=== PATIENT | male | born 1955 ===

== ENCOUNTER 2018-07-13 15:35 | Inpatient (IN) | payer SELFPAY ==
--- NOTE | 2018-07-13 16:36 | ED PDOC ---
HPI: Neurologic - History of Present Illness Additional Complaint(s): This is 62 y/o male with PMH of NIDDM-II, HTN and TIA comes to the ER c/o right arm weakness 10 hours ago. Patient reports he was writing and started feeling weak all the sudden up to the point he couldn't write or move his arm. Right arm weakness/numbness lasted for few hours and currently completely resolved. Patient denies any slurred speech, vision problem, headache, dizziness, confusion, chest pain, SOB, or LOC. Patient reports he also has few days hx of mild lower extremities weakness which gets prominent after walking or standing for long time. Patient has hx of TIA 5 years ago. PMH: NIDDM-II, HTN and TIA PSH: Denies Allg: NKDA FH: + DM SH: Denies alcohol, smining or drug use ROS: As per HPI <Linnette Theodore - Last Filed: 07/13/18 18:51> <Omaira Daugherty - Last Filed: 07/15/18 03:57> - General Time Seen by Provider: 07/13/18 15:59 Chief Complaint (Nursing): Weakness/Neurological Deficit - History of Present Illness Allergies/Adverse Reactions: Allergies No Known Allergies Allergy (Verified 07/13/18 15:52) Home Medications: Ambulatory Orders Glimepiride [Amaryl] 4 mg PO BID 01/18/15 Losartan [Cozaar] 50 mg PO DAILY 01/18/15 Alogliptin Madhav/Metformin HCl [Kazano 12.5-1,000 mg Tablet] 1 tab PO BID 07/13/18 Fenofibrate,Micronized [Fenofibrate] 134 mg PO DAILY 07/13/18 Pioglitazone [Actos] 15 mg PO DAILY 07/13/18 Past Medical History Vital Signs: Last Vital Signs Temp 98.1 F 07/13/18 15:49 Pulse 67 07/13/18 15:49 Resp 17 07/13/18 15:49 BP 166/85 H 07/13/18 15:49 Pulse Ox 99 07/13/18 15:49 - Medical History PMH: Diabetes, HTN - Family History Family History: States: Diabetes <Linnette Theodore - Last Filed: 07/13/18 18:51> Reviewed: Historical Data, Nursing Documentation, Vital Signs Vital Signs: Last Vital Signs Temp 98.1 F 07/15/18 00:41 Pulse 71 07/15/18 00:41 Resp 16 07/15/18 00:41 BP 135/73 07/15/18 00:41 Pulse Ox 98 07/15/18 00:41 - Surgical History Surgical History: No Surg Hx <Omaira Daugherty - Last Filed: 07/15/18 03:57> - Home Medications Home Medications: Ambulatory Orders Medication Instructions Recorded Glimepiride [Amaryl] 4 mg PO BID 01/18/15 Losartan [Cozaar] 50 mg PO DAILY 01/18/15 Alogliptin Madhav/Metformin HCl 1 tab PO BID 07/13/18 [Kazano 12.5-1,000 mg Tablet] Fenofibrate,Micronized 134 mg PO DAILY 07/13/18 [Fenofibrate] Pioglitazone [Actos] 15 mg PO DAILY 07/13/18 - Allergies Allergies/Adverse Reactions: Allergies Allergy/AdvReac Type Severity Reaction Status Date / Time No Known Allergies Allergy Verified 07/13/18 15:52 Review of Systems Constitutional: Negative for: Fever, Chills, Sweats Eyes: Negative for: Pain, Vision Change, Conjunctivae Inflammation ENT: Negative for: Ear Pain, Ear Discharge, Nose Pain, Nose Discharge Cardiovascular: Negative for: Chest Pain, Palpitations, Orthopnea, Paroxysmal Noc. Dyspnea Respiratory: Negative for: Cough, Shortness of Breath, Hemoptysis Gastrointestinal: Negative for: Nausea, Vomiting, Diarrhea Genitourinary Male: Negative for: Dysuria, Frequency, Incontinence Musculoskeletal: Negative for: Neck Pain Skin: Negative for: Rash Neurological: Positive for: Weakness, Numbness. Negative for: Incoordination, Change in Speech, Confusion, Seizures, Altered Mental Status, Headache, Dizziness Psych: Negative for: Anxiety <Linnette Theodore - Last Filed: 07/13/18 18:51> ROS Statement: Except As Marked, All Systems Reviewed And Found Negative <Omaira Daugherty - Last Filed: 07/15/18 03:57> Physical Exam - Physical Exam Appears: Positive for: No Acute Distress Head Exam: Positive for: ATRAUMATIC, NORMAL INSPECTION, NORMOCEPHALIC Skin: Positive for: Normal Color, Warm, Dry Eye Exam: Positive for: Normal appearance, EOMI, PERRL. Negative for: Nystagmus, Periorbital swelling, Periorbital tenderness, Conjunctival injection ENT: Positive for: Normal ENT Inspection Neck: Positive for: Normal Cardiovascular/Chest: Positive for: Regular Rate, Rhythm, Chest Non Tender. Negative for: Edema, JVD, Murmur, Irregularly Irregular Respiratory: Positive for: Normal Breath Sounds. Negative for: Decreased Breath Sounds, Accessory Muscle Use, Crackles, Wheezing Gastrointestinal/Abdominal: Positive for: Normal Exam, Bowel Sounds (+), Soft. Negative for: Tenderness Back: Positive for: Normal Inspection. Negative for: L CVA Tenderness, R CVA Te nderness Extremity: Positive for: Normal ROM. Negative for: Tenderness, Pedal Edema, Calf Tenderness DTR - Knee (R): 2+ DTR - Knee (L): 2+ Neurological/Psych: Positive for: Awake, Alert, Normal Tone, Oriented, Gait (Normal), electrical engineering manager II-XII, Other (NIHSS score is 0 ). Negative for: Lethargic, Motor/Sensory Deficits, Facial Droop <Linnette Theodore - Last Filed: 07/13/18 18:51> - Reviewed Nursing Documentation Reviewed: Yes Vital Signs Reviewed: Yes <Omaira Daugherty - Last Filed: 07/15/18 03:57> - Laboratory Results Result Diagrams: 07/13/18 16:30 07/13/18 16:30 - ECG O2 Sat by Pulse Oximetry: 99 - Progress ED Course And Treament: A/P: 62 y/o male with PMH of NIDDM-II, HTN and TIA comes to the ER c/o right arm weakness 10 hours ago and b/l LEs weakness for few days. Asymptomatic currently. - NIHSS 0 - Stroke/TIA work up - Neurology consult Case discussed with Dr. Daugherty Neurology: recommendation MRI Discussed with Dr. Daugherty: will get MRI after CT CBC, CMP, lipids and trop reviewed: WNL EKG reviewed CXR: No acute disease CT head: No acute changes, + old infarct Aspirin given MRI ordered Patient was explained and informed about his diagnosis and findings Patient agrees with Admission <Linnette Theodore - Last Filed: 07/13/18 18:51> - Laboratory Results Result Diagrams: 07/13/18 16:30 07/14/18 06:01 Lab Results: PT 10.5 Seconds (9.8-13.1) 07/13/18 16:30 INR 0.9 07/13/18 16:30 APTT 32.2 Seconds (25.6-37.1) 07/13/18 16:30 Troponin I < 0.0120 ng/mL (0.00-0.120) 07/13/18 16:30 Total Bilirubin 0.4 mg/dl (0.2-1.3) 07/13/18 16:30 AST 25 U/L (17-59) 07/13/18 16:30 ALT 32 U/L (21-72) 07/13/18 16:30 Alkaline Phosphatase 72 U/L (38-126) 07/13/18 16:30 Total Protein 7.3 G/DL (6.3-8.2) 07/13/18 16:30 Albumin 4.4 g/dL (3.5-5.0) 07/13/18 16:30 Globulin 2.8 gm/dL (2.2-3.9) 07/13/18 16:30 Albumin/Globulin Ratio 1.6 (1.0-2.1) 07/13/18 16:30 <Omaira Daugherty - Last Filed: 07/15/18 03:57> Disposition - Patient ED Disposition Is Patient to be Admitted: Yes Discussed With : Karina Lakhani Doctor Will See Patient In The: ED - Disposition Disposition: Transfer of Care Disposition Time: 18:50 - Pt Status Changed To: Hospital Disposition Of: Observation <Linnetet Theodore - Last Filed: 07/13/18 18:51> Counseled Patient/Family Regarding: Studies Performed, Diagnosis - POA Present On Arrival: None <Omaira Daugherty - Last Filed: 07/15/18 03:57> - Clinical Impression Clinical Impression: Weakness due to cerebrovascular accident - Disposition Condition: FAIR
[2018-07-13 16:49] LABS: BASO % 0.4 % (0.0-2.0); EOS % 0.6 % (0.0-4.0); HEMOGLOBIN 13.6 g/dL (12.0-18.0); LYMPH # 1.2 K/uL (1.0-4.3); LYMPH % 19.5 % (20.0-40.0); MEAN CELL VOLUME 93.8 fl (80.0-94.0); MEAN CORPUSCULAR HEMOGLOBIN 31.3 pg (27.0-31.0); MEAN CORPUSCULAR HGB CONC 33.3 g/dL (33.0-37.0); MEAN PLATELET VOLUME 8.9 fl (7.2-11.7); MONO # 0.5 K/uL (0.0-0.8); MONO % 8.2 % (0.0-10.0); NEUT # 4.3 K/uL (1.8-7.0); NEUT % 71.3 % (50.0-75.0); RBC 4.34 Mil/uL (4.40-5.90); RED CELL DISTRIBUTION WIDTH 12.3 % (11.5-14.5)
[2018-07-13 16:56] LABS: INR 0.9; PROTHROMBIN TIME 10.5 Seconds (9.8-13.1)
[2018-07-13 16:59] LABS: PARTIAL THROMBOPLASTIN TIME 32.2 Seconds (25.6-37.1)
[2018-07-13 17:07] LABS: ALB/GLOB RATIO 1.6 (1.0-2.1); ALBUMIN 4.4 g/dL (3.5-5.0); ALT/SGPT 32 U/L (21-72); AST/SGOT 25 U/L (17-59); BLOOD UREA NITROGEN 21 mg/dl (9-20); GFR NON-AFRICAN AMERICAN 56; HDL CHOLESTEROL 45 MG/DL (30-70)
--- NOTE | 2018-07-13 17:16 | CT ---
Date of service: 07/13/2018 PROCEDURE: CT HEAD WITHOUT CONTRAST. HISTORY: code stroke COMPARISON: None available. TECHNIQUE: Axial computed tomography images were obtained through the head/brain without intravenous contrast. Radiation dose: Total exam DLP = 1089.51 mGy-cm. This CT exam was performed using one or more of the following dose reduction techniques: Automated exposure control, adjustment of the mA and/or kV according to patient size, and/or use of iterative reconstruction technique. FINDINGS: HEMORRHAGE: No intracranial hemorrhage. BRAIN: No mass effect or edema. Mild diffuse atrophy. No evidence of chronic white matter ischemic change. No evidence of acute infarct. Old left basal ganglia lacunar infarct. Old right posterior parietal territorial infarct. Remote small right high frontal white matter infarct. VENTRICLES: Minimal ventricular dilatation proportionate to the degree of surrounding atrophy. Mild ex vacuo dilatation of the atrium of the right lateral ventricle secondary to old right posterior parietal infarct. No midline shift. CALVARIUM: Unremarkable. PARANASAL SINUSES: Unremarkable as visualized. No significant inflammatory changes. MASTOID AIR CELLS: Unremarkable as visualized. No inflammatory changes. OTHER FINDINGS: None. IMPRESSION: No evidence of acute infarct. Old right posterior parietal infarct. Old left basal ganglia lacunar infarct. Findings were discussed by telephone with Dr. Theodore at 5:07 p.m. on 07/13/2018.
[2018-07-13 17:19] LABS: LDL CHOLESTEROL 74 mg/dL (0-129)
[2018-07-13] MEDS: Sodium Chloride 0.9% 1,000 ML IV SCH (17:39)
--- NOTE | 2018-07-13 17:51 | RAD ---
Date of service: 07/13/2018 HISTORY: Code Stroke COMPARISON: 01/18/2015 FINDINGS: LUNGS: No active pulmonary disease. PLEURA: No significant pleural effusion identified, no pneumothorax apparent. CARDIOVASCULAR: No aortic atherosclerotic calcification present. Normal cardiac size. No pulmonary vascular congestion. OSSEOUS STRUCTURES: No significant abnormalities. VISUALIZED UPPER ABDOMEN: Normal. OTHER FINDINGS: None. IMPRESSION: No active disease.
--- NOTE | 2018-07-13 19:47 | CP.PCM.HP ---
<Jose Reagan - Last Filed: 07/13/18 23:35> History of Present Illness - History of Present Illness History of Present Illness: 62 y/o M with a PMHx of DM2, HTN and CVA presented to ED complaining of R arm weakness that was noticed this morning. 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 Pt also reports that b/l legs have felt heavier for the last 2 weeks mostly at the end of the day, prolonged walking or standing. --Pt denies recent trauma, visual disturbances, headache, dizziness, hearing deficit, confusion, chest pain, palpitations, SOB, nausea, abdominal pain, nausea, vomiting, paresthesia, or rash. No recent travel. --As per pt, he has Hx of stroke 5 years ago which manifested as an episode of confusion that last a few hours. PMD: Dr Adams. NKDA -PMHx: NIDDM-II, HTN and TIA -PSHx: Denies -FHx: Father with sudden heart attack at age 51, Mother due to DM2 complications. -SHs: Denies alcohol, tobacco or rec drug use ED Course: --Vital signs WNL except for BP 166/85-high. --CBC and CMP were unremarkable. --Head CT: No evidence of acute infarct. Old right posterior parietal infarct. Old left basal ganglia lacunar infarct. --Aspirin 325mg PO administered. --IV NS at 100mL/hr initiated. Present on Admission - Present on Admission Any Indicators Present on Admission: No Review of Systems - Constitutional Constitutional: absent: Anorexia, Chills, Fever - EENT Nose/Mouth/Throat: absent: Nasal Congestion, Nasal Discharge, Nasal Obstruction, Throat Swelling, Tongue Swelling, Facial Pain, Neck Pain, Neck Mass - Cardiovascular Cardiovascular: absent: Chest Pain, Claudication, Palpitations - Respiratory Respiratory: absent: Cough, Dyspnea, Hemoptysis, Wheezing - Gastrointestinal Gastrointestinal: absent: Abdominal Pain, Constipation, Nausea, Vomiting - Genitourinary Genitourinary: absent: Dysuria, Flank Pain, Hematuria, Urinary Frequency - Musculoskeletal Musculoskeletal: absent: Abnormal Gait, Back Pain, Neck Pain - Neurological Neurological: absent: Abnormal Hearing, Abnormal Speech, Behavioral Changes, Con vulsions, Dizziness, Numbness, Tingling, Tremor Past Patient History - Past Social History Smoking Status: Never Smoked - CARDIAC Hx Hypertension: Yes - ENDOCRINE/METABOLIC Hx Diabetes Mellitus Type 2: Yes - PSYCHIATRIC Hx Substance Use: No - SURGICAL HISTORY Hx Surgeries: No Meds Allergies/Adverse Reactions: Allergies Allergy/AdvReac Type Severity Reaction Status Date / Time No Known Allergies Allergy Verified 07/13/18 15:52 Physical Exam - Constitutional Appears: Well, No Acute Distress - Head Exam Head Exam: ATRAUMATIC, NORMAL INSPECTION - Eye Exam Eye Exam: EOMI, Normal appearance, PERRL - ENT Exam ENT Exam: Mucous Membranes Moist - Neck Exam Neck exam: Positive for: Full Rom, Normal Inspection. Negative for: Meningismus, Tenderness - Respiratory Exam Respiratory Exam: Clear to Auscultation Bilateral, NORMAL BREATHING PATTERN. absent: Wheezes, Respiratory Distress - Cardiovascular Exam Cardiovascular Exam: REGULAR RHYTHM, +S1, +S2 - GI/Abdominal Exam GI & Abdominal Exam: Soft. absent: Firm, Guarding, Rebound, Tenderness - Extremities Exam Extremities exam: Positive for: full ROM, normal inspection, pedal pulses present. Negative for: calf tenderness, joint swelling, pedal edema, tenderness - Neurological Exam Neurological exam: Alert, CN II-XII Intact, Normal Gait, Oriented x3 Additional comments: NIHSS score of 0 - Expanded Neurological Exam Expanded Patient oriented to: person, place, time Speech: Fluid Speech Cranial nerves: EOM's Intact: Normal, Facial Palsey w/Forehead Movement: Normal, Facial Palsey w/o Forehead Movement: Normal, Facial Sensation: Normal, Tongue Deviation: Normal Cerebellar Function: Finger to Nose: Normal, Heel to Crowe: Normal Sensory exam: Lower Extremity Light Touch: Normal, Upper Extremity Light Touch: Normal Neuro motor strength exam: Left Upper Extremity: 5, Right Upper Extremity: 5, Left Lower Extremity: 5, Right Lower Extremity: 5 Coma Scale Eye Opening: SPONTANEOUS Coma Scale Motor Response: OBEYS COMMANDS Coma Scale Verbal: Oriented Coma Scale Total: 15 - Psychiatric Exam Psychiatric exam: Normal Affect, Normal Mood Results - Vital Signs Recent Vital Signs: Last Vital Signs Temp 98.1 F 07/13/18 15:49 Pulse 80 07/13/18 19:41 Resp 24 07/13/18 19:41 BP 179/107 H 07/13/18 19:41 Pulse Ox 100 03/20/19 19:41 - Labs Result Diagrams: 07/13/18 16:30 07/13/18 16:30 Labs: Laboratory Results - last 24 hr 07/13/18 07/13/18 07/13/18 16:30 16:30 16:30 WBC 6.0 RBC 4.34 L Hgb 13.6 Hct 40.7 MCV 93.8 MCH 31.3 H MCHC 33.3 RDW 12.3 Plt Count 216 MPV 8.9 Neut % (Auto) 71.3 Lymph % (Auto) 19.5 L [place] % (Auto) 8.2 Eos % (Auto) 0.6 Baso % (Auto) 0.4 Neut # (Auto) 4.3 Lymph # (Auto) 1.2 [place] # (Auto) 0.5 Eos # (Auto) 0.0 Baso # (Auto) 0.0 PT 10.5 INR 0.9 APTT 32.2 Sodium 140 Potassium 4.5 Chloride 105 Carbon Dioxide 25 Anion Gap 15 BUN 21 H Creatinine 1.3 Est GFR ( Amer) > 60 Est GFR (Non-Af Amer) 56 POC Glucose (mg/dL) Random Glucose 272 H Calcium 10.0 Total Bilirubin 0.4 AST 25 ALT 32 Alkaline Phosphatase 72 Troponin I < 0.0120 Total Protein 7.3 Albumin 4.4 Globulin 2.8 Albumin/Globulin Ratio 1.6 Triglycerides 115 Cholesterol 138 LDL Cholesterol Direct 74 HDL Cholesterol 45 Blood Type Antibody Screen BBK History Checked 07/13/18 07/13/18 07/13/18 16:30 16:43 19:35 WBC RBC Hgb Hct MCV MCH MCHC RDW Plt Count MPV Neut % (Auto) Lymph % (Auto) [place] % (Auto) Eos % (Auto) Baso % (Auto) Neut # (Auto) Lymph # (Auto) [place] # (Auto) Eos # (Auto) Baso # (Auto) PT INR APTT Sodium Potassium Chloride Carbon Dioxide Anion Gap BUN Creatinine Est GFR ( Amer) Est GFR (Non-Af Amer) POC Glucose (mg/dL) 250 H 174 H Random Glucose Calcium Total Bilirubin AST ALT Alkaline Phosphatase Troponin I Total Protein Albumin Globulin Albumin/Globulin Ratio Triglycerides Cholesterol LDL Cholesterol Direct HDL Cholesterol Blood Type O POSITIVE Antibody Screen Negative BBK History Checked No verified bt Assessment & Plan - Assessment and Plan (Free Text) Assessment: 62 y/o M with a PMHx of DM2, HTN and CVA is admitted for evaluation and management of right upper extremity weakness. --Head CT: No evidence of acute infarct. Old right posterior parietal infarct. Old left basal ganglia lacunar infarct. PLAN: >Right arm weakness --Resolved, VSS stable --Possibly TIA vs ischemic stroke vs seizures --Hemorrhagic CVA ruled out by Head CT. --Neurology consult, Dr Beal --MRI and MRA of brain ordered --US of b/l carotid ordered --Echocardiogram ordered. --Neuro-cheks --C/w IV fluids --F/U results >NIDDM --Chronic, uncontrolled --HbA1c 7.9-high today --Home meds resumed --Insulin sliding scale coverage and hypoglycemis protocol >HTN --Chronic --Home meds resumed >DVT Prophylaxis --SCDx for now Case discussed with Karina Rousseau PGY-2 - Date & Time Date: 07/13/18 Time: 19:35 <Karina Lakhani - Last Filed: 07/14/18 11:16> Results - Vital Signs Recent Vital Signs: Last Vital Signs Temp 98.1 F 07/14/18 06:10 Pulse 69 07/14/18 10:36 Resp 18 07/14/18 07:30 BP 151/76 H 07/14/18 10:36 Pulse Ox 100 07/14/18 07:30 - Labs Result Diagrams: 07/13/18 16:30 07/14/18 06:01 Labs: Laboratory Results - last 24 hr 07/13/18 07/13/18 07/13/18 16:30 16:30 16:30 WBC 6.0 RBC 4.34 L Hgb 13.6 Hct 40.7 MCV 93.8 MCH 31.3 H MCHC 33.3 RDW 12.3 Plt Count 216 MPV 8.9 Neut % (Auto) 71.3 Lymph % (Auto) 19.5 L [place] % (Auto) 8.2 Eos % (Auto) 0.6 Baso % (Auto) 0.4 Neut # (Auto) 4.3 Lymph # (Auto) 1.2 [place] # (Auto) 0.5 Eos # (Auto) 0.0 Baso # (Auto) 0.0 PT 10.5 INR 0.9 APTT 32.2 Sodium 140 Potassium 4.5 Chloride 105 Carbon Dioxide 25 Anion Gap 15 BUN 21 H Creatinine 1.3 Est GFR ( Amer) > 60 Est GFR (Non-Af Amer) 56 POC Glucose (mg/dL) Random Glucose 272 H Hemoglobin A1c Calcium 10.0 Total Bilirubin 0.4 AST 25 ALT 32 Alkaline Phosphatase 72 Troponin I < 0.0120 Total Protein 7.3 Albumin 4.4 Globulin 2.8 Albumin/Globulin Ratio 1.6 Triglycerides 115 Cholesterol 138 LDL Cholesterol Direct 74 HDL Cholesterol 45 Blood Type Blood Type Confirm Antibody Screen BBK History Checked 07/13/18 07/13/18 07/13/18 16:30 16:43 17:15 WBC RBC Hgb Hct MCV MCH MCHC RDW Plt Count MPV Neut % (Auto) Lymph % (Auto) [place] % (Auto) Eos % (Auto) Baso % (Auto) Neut # (Auto) Lymph # (Auto) [place] # (Auto) Eos # (Auto) Baso # (Auto) PT INR APTT Sodium Potassium Chloride Carbon Dioxide Anion Gap BUN Creatinine Est GFR ( Amer) Est GFR (Non-Af Amer) POC Glucose (mg/dL) 250 H Random Glucose Hemoglobin A1c 7.9 H Calcium Total Bilirubin AST ALT Alkaline Phosphatase Troponin I Total Protein Albumin Globulin Albumin/Globulin Ratio Triglycerides Cholesterol LDL Cholesterol Direct HDL Cholesterol Blood Type O POSITIVE Blood Type Confirm Antibody Screen Negative BBK History Checked No verified bt 07/13/18 07/14/18 07/14/18 19:35 02:56 06:01 WBC RBC Hgb Hct MCV MCH MCHC RDW Plt Count MPV Neut % (Auto) Lymph % (Auto) [place] % (Auto) Eos % (Auto) Baso % (Auto) Neut # (Auto) Lymph # (Auto) [place] # (Auto) Eos # (Auto) Baso # (Auto) PT INR APTT Sodium Potassium Chloride Carbon Dioxide Anion Gap BUN Creatinine Est GFR ( Amer) Est GFR (Non-Af Amer) POC Glucose (mg/dL) 174 H 140 H Random Glucose Hemoglobin A1c Calcium Total Bilirubin AST ALT Alkaline Phosphatase Troponin I Total Protein Albumin Globulin Albumin/Globulin Ratio Triglycerides Cholesterol LDL Cholesterol Direct HDL Cholesterol Blood Type Blood Type Confirm O POSITIVE Antibody Screen BBK History Checked 07/14/18 07/14/18 06:01 06:11 WBC RBC Hgb Hct MCV MCH MCHC RDW Plt Count MPV Neut % (Auto) Lymph % (Auto) [place] % (Auto) Eos % (Auto) Baso % (Auto) Neut # (Auto) Lymph # (Auto) [place] # (Auto) Eos # (Auto) Baso # (Auto) PT INR APTT Sodium 141 Potassium 4.2 Chloride 111 H Carbon Dioxide 25 Anion Gap 9 L BUN 17 Creatinine 1.2 Est GFR ( Amer) > 60 Est GFR (Non-Af Amer) > 60 POC Glucose (mg/dL) 180 H Random Glucose 182 H Hemoglobin A1c Calcium 9.2 Total Bilirubin AST ALT Alkaline Phosphatase Troponin I Total Protein Albumin Globulin Albumin/Globulin Ratio Triglycerides Cholesterol LDL Cholesterol Direct HDL Cholesterol Blood Type Blood Type Confirm Antibody Screen BBK History Checked Attending/Attestation - Attestation I have personally seen and examined this patient.: Yes I have fully participated in the care of the patient.: Yes I have reviewed all pertinent clinical information: Yes Notes (Text): 07/14/18 11:16 Agree with findings and plan as above
[2018-07-13] MEDS ORDERED: Glucagon Recombinant 1 mg Inj IM PRN (21:05)
[2018-07-13] MEDS ORDERED: Dextrose 50% SYRINGE Inj (50 ml) IV PRN (21:05)
[2018-07-14] MEDS: GlipiZIDE 10 mg SR Tab PO SCH ×3 (03:01→17:05)
[2018-07-14] MEDS: Insulin Lispro (humaLOG) 100 Units/ml Inj SC SCH ×5 (03:01→22:13)
[2018-07-14] MEDS: Sodium Chloride 0.9% 1,000 ML IV SCH ×3 (03:02→22:19)
[2018-07-14 06:15] LABS: BLOOD UREA NITROGEN 17 mg/dl (9-20); CALCIUM 9.2 mg/dL (8.4-10.2); GFR NON-AFRICAN AMERICAN > 60
[2018-07-14] MEDS: Enoxaparin 40 mg Syringe SC SCH (10:39)
--- NOTE | 2018-07-14 12:28 | CP.PCM.PN ---
<Harriett Bee - Last Filed: 07/14/18 13:22> Subjective - Date & Time of Evaluation Date of Evaluation: 07/14/18 Time of Evaluation: 12:27 - Subjective Subjective: 62 y/o M with a PMHx of DM2, HTN and CVA seen and evaluated at bedside for right arm weakness. Denies any complains today. Denies any weakness to the extremities. Denies pain to the body, denies any medical complains. No visual disturbances, headache, dizziness, hearing deficit, confusion, chest pain, palpitations, SOB, nausea, abdominal pain, nausea, vomiting, paresthesia, or rash. No recent travel. Objective - Vital Signs/Intake and Output Vital Signs (last 24 hours): Temp Pulse Resp BP Pulse Ox 98.2 F 66 18 152/88 H 95 07/14/18 11:25 07/14/18 11:25 07/14/18 11:25 07/14/18 11:25 07/14/18 11:25 - Medications Medications: Current Medications Aspirin (Ecotrin) 81 mg PO DAILY [facility] Last Admin: 07/14/18 10:38 Dose: 81 mg Atorvastatin Calcium (Lipitor) 20 mg PO DAILY [facility] Last Admin: 07/14/18 10:39 Dose: 20 mg Clopidogrel Bisulfate (Plavix) 75 mg PO DAILY [facility] Last Admin: 07/14/18 10:40 Dose: 75 mg Dextrose (Dextrose 50% Inj) 0 ml IV STAT PRN; Protocol PRN Reason: Hypoglycemia Protocol Dextrose (Glutose 15) 0 gm PO ONCE PRN; Protocol PRN Reason: Hypoglycemia Protocol Enoxaparin Sodium (Lovenox) 40 mg SC DAILY [facility]; Protocol Last Admin: 07/14/18 10:39 Dose: 40 mg Fenofibrate (Tricor) 145 mg PO DAILY [facility] Last Admin: 07/14/18 10:40 Dose: 145 mg Glipizide (Glucotrol Xl) 10 mg PO BID [facility] Last Admin: 07/14/18 10:33 Dose: 10 mg Glucagon (Glucagen Diagnostic Kit) 0 mg IM STAT PRN; Protocol PRN Reason: Hypoglycemia Protocol Sodium Chloride (Sodium Chloride 0.9%) 1,000 mls @ 100 mls/hr IV .Q10H [facility] Last Admin: 07/14/18 03:02 Dose: Not Given Insulin Human Lispro (Humalog) 0 units SC ACCU-CHECK [facility]; Protocol Last Admin: 07/14/18 09:09 Dose: Not Given Losartan Potassium (Cozaar) 50 mg PO DAILY [facility] Last Admin: 07/14/18 10:36 Dose: 50 mg Metformin HCl (Glucophage) 1,000 mg PO BID [facility] Last Admin: 07/14/18 10:38 Dose: 1,000 mg Pioglitazone HCl (Actos) 15 mg PO DAILY [facility] Last Admin: 07/14/18 10:36 Dose: 15 mg Sitagliptin Phosphate (Januvia) 50 mg PO BID [facility] Last Admin: 07/14/18 10:35 Dose: 50 mg - Labs Labs: 07/13/18 16:30 07/14/18 06:01 PT 10.5 Seconds (9.8-13.1) 07/13/18 16:30 INR 0.9 07/13/18 16:30 APTT 32.2 Seconds (25.6-37.1) 07/13/18 16:30 - Constitutional Appears: Well, Non-toxic, No Acute Distress - Head Exam Head Exam: ATRAUMATIC, NORMOCEPHALIC - Eye Exam Eye Exam: Normal appearance Pupil Exam: NORMAL ACCOMODATION - ENT Exam ENT Exam: Mucous Membranes Moist - Cardiovascular Exam Cardiovascular Exam: REGULAR RHYTHM, +S1, +S2 - Neurological Exam Neurological Exam: Alert, Awake, Oriented x3 - Skin Skin Exam: Normal Color Assessment and Plan - Assessment and Plan (Free Text) Assessment: 62 y/o M with a PMHx of DM2, HTN and CVA is admitted for evaluation and management of right upper extremity weakness. --Head CT: No evidence of acute infarct. Old right posterior parietal infarct. Old left basal ganglia lacunar infarct. Neurology consult ordered. MRI of brain shows acute lacunar infarct. Echo and US of b/l carotid pending. Plan: >Right arm weakness --Resolved, VSS stable --Possibly TIA vs ischemic stroke vs seizures --Hemorrhagic CVA ruled out by Head CT. --Neurology consult, Dr Beal ---Head CT: No evidence of acute infarct. Old right posterior parietal infarct. Old left basal ganglia lacunar infarct. --MRI and MRA of brain ordered; acute lacunar infarct noted --US of b/l carotid ordered --Echocardiogram ordered. --Neuro-cheks --C/w IV fluids --PT /OT on board -- Aspirin, lovenox and plavix started -- Started Atorvastatin >NIDDM --Chronic, uncontrolled --HbA1c 7.9-high today --Home meds resumed --Insulin sliding scale coverage and hypoglycemis protocol >HTN --Chronic --Home meds resumed >DVT Prophylaxis --SCDx for now <Renee Winkler - Last Filed: 07/14/18 16:35> Objective - Vital Signs/Intake and Output Vital Signs (last 24 hours): Temp Pulse Resp BP Pulse Ox 98.4 F 69 17 142/81 98 07/14/18 16:18 07/14/18 16:18 07/14/18 16:18 07/14/18 16:18 07/14/18 16:18 - Medications Medications: Current Medications Aspirin (Ecotrin) 81 mg PO DAILY [facility] Last Admin: 07/14/18 10:38 Dose: 81 mg Atorvastatin Calcium (Lipitor) 20 mg PO DAILY [facility] Last Admin: 07/14/18 10:39 Dose: 20 mg Clopidogrel Bisulfate (Plavix) 75 mg PO DAILY [facility] Last Admin: 07/14/18 10:40 Dose: 75 mg Dextrose (Dextrose 50% Inj) 0 ml IV STAT PRN; Protocol PRN Reason: Hypoglycemia Protocol Dextrose (Glutose 15) 0 gm PO ONCE PRN; Protocol PRN Reason: Hypoglycemia Protocol Enoxaparin Sodium (Lovenox) 40 mg SC DAILY [facility]; Protocol Last Admin: 07/14/18 10:39 Dose: 40 mg Fenofibrate (Tricor) 145 mg PO DAILY [facility] Last Admin: 07/14/18 10:40 Dose: 145 mg Glipizide (Glucotrol Xl) 10 mg PO BID [facility] Last Admin: 07/14/18 10:33 Dose: 10 mg Glucagon (Glucagen Diagnostic Kit) 0 mg IM STAT PRN; Protocol PRN Reason: Hypoglycemia Protocol Sodium Chloride (Sodium Chloride 0.9%) 1,000 mls @ 100 mls/hr IV .Q10H [facility] Last Admin: 07/14/18 03:02 Dose: Not Given Insulin Detemir (Levemir) 6 units SC HS [facility] Insulin Human Lispro (Humalog) 0 units SC ACCU-CHECK [facility]; Protocol Last Admin: 07/14/18 12:39 Dose: Not Given Metformin HCl (Glucophage) 1,000 mg PO BID [facility] Last Admin: 07/14/18 10:38 Dose: 1,000 mg Pioglitazone HCl (Actos) 15 mg PO DAILY [facility] Last Admin: 07/14/18 10:36 Dose: 15 mg Sitagliptin Phosphate (Januvia) 50 mg PO BID [facility] Last Admin: 07/14/18 10:35 Dose: 50 mg - Labs Labs: 07/13/18 16:30 07/14/18 06:01 PT 10.5 Seconds (9.8-13.1) 07/13/18 16:30 INR 0.9 07/13/18 16:30 APTT 32.2 Seconds (25.6-37.1) 07/13/18 16:30 Attending/Attestation - Attestation I have personally seen and examined this patient.: Yes I have fully participated in the care of the patient.: Yes I have reviewed all pertinent clinical information, including history, physical exam and plan: Yes Notes (Text): Diagnoses: Acute CVA DM Type II with Hyperglycemia HTN MRI of Brain: Restricted diffusion in the left basal ganglia measuring 1.3 x 0.8 centimeters consistent with acute infarct.Cystic encephalomalacia in the right occipital l obe compatible with an old infarct. Mild age-appropriate atrophy. Mild chronic periventricular white matter ischemic disease. - start ASA, Plavix and Lipitor - Hold Losartan to allow permissive HTN -PT/PT, Speech consult - Neurology consult - Dr Beal - Echo - Carotid Sono - Lovenox for DVT proph
--- NOTE | 2018-07-14 14:28 | MRI ---
Date of service: 07/13/2018 PROCEDURE: MRI BRAIN WITHOUT CONTRAST HISTORY: TIA COMPARISON: None available. TECHNIQUE: Multiplanar, multisequence MR images of the brain were obtained without intravenous contrast enhancement. FINDINGS: HEMORRHAGE: None DWI: Restricted diffusion in the left basal ganglia measuring 1.3 x 0.8 centimeters consistent with acute infarct. BRAIN PARENCHYMA: No mass effect or edema. Cystic encephalomalacia in the right occipital lobe compatible with an old infarct. Mild age-appropriate atrophy. Mild chronic periventricular white matter ischemic disease. VENTRICLES: Unremarkable. No hydrocephalus. CRANIUM: Unremarkable. ORBITS: Grossly unremarkable. PARANASAL SINUSES/MASTOIDS: Clear VASCULAR SYSTEM: Skull base flow voids intact. OTHER FINDINGS: None. IMPRESSION: Restricted diffusion in the left basal ganglia measuring 1.3 x 0.8 centimeters consistent with acute infarct.Cystic encephalomalacia in the right occipital lobe compatible with an old infarct. Mild age-appropriate atrophy. Mild chronic periventricular white matter ischemic disease.
--- NOTE | 2018-07-14 17:28 | CARD ---
APPROVED REPORT Date of service: 07/14/2018 EXAM: Two-dimensional and M-mode echocardiogram with Doppler and color Doppler. Other Information Quality : GoodRhythm : NSR INDICATION CVA/TIA 2D DIMENSIONS IVSd1.53 (0.7-1.1cm)LVDd4.96 (3.9-5.9cm) LVOT Diameter2.25 (1.8-2.4cm)PWd1.26 (0.7-1.1cm) IVSs1.82 (0.8-1.2cm)LVDs3.34 (2.5-4.0cm) FS (%) 32.5 %PWs1.79 (0.8-1.2cm) M-Mode DIMENSIONS Left Atrium (MM)3.97 (2.5-4.0cm)IVSd1.15 (0.7-1.1cm) Aortic Root3.82 (2.2-3.7cm)LVDd5.59 (4.0-5.6cm) Aortic Cusp Exc.2.29 (1.5-2.0cm)PWd1.18 (0.7-1.1cm) IVSs1.79 cmFS (%) 44 % LVDs3.15 (2.0-3.8cm)PWs1.50 cm Aortic Valve AoV Peak Tffnurfx933.8cm/sAoV VTI25.4cmAO Peak GR.8mmHg LVOT Peak Riqnbwnv99.5cm/sLVOT VTI20.34cmAO Mean GR.4mmHg MIRI (VMAX)1.18hn2IJA (VTI)1.51cm2 Mitral Valve MV E Fgzykfsx04.3cm/sMV DECEL [id number] A Hgazznlz27.9cm/s MV EOT13dxH/A ratio0.8MVA (PHT)3.42cm2 TDI Lateral E' Peak V9.61cm/sMedial E' Peak V7.41cm/sE/Lateral E'5.1 E/Medial E'6.7 LEFT VENTRICLE The left ventricle is normal size. There is mild concentric left ventricular hypertrophy. The left ventricular systolic function is normal. The estimated ejection fraction is 60-65% No regional wall motion abnormalities noted.. Transmitral Doppler flow pattern is Grade I-abnormal relaxation pattern. No left ventricle thrombus noted on this study. There is no ventricular septal defect visualized. There is no left ventricular aneurysm. There is no mass noted in the left ventricle. RIGHT VENTRICLE The right ventricle is normal size. There is normal right ventricular wall thickness. The right ventricular systolic function is normal. ATRIA The left atrium is mildly dilated. The right atrium size is normal. The interatrial septum is intact with no evidence for an atrial septal defect. AORTIC VALVE The aortic valve is normal in structure. No aortic regurgitation is present. There is no aortic valvular stenosis. There is no aortic valvular vegetation. MITRAL VALVE The mitral valve is normal in structure. There is no evidence of mitral valve prolapse. There is no mitral valve stenosis. There is trivial mitral valve regurgitation noted. TRICUSPID VALVE The tricuspid valve is normal in structure. There is no tricuspid valve regurgitation noted. There is no tricuspid valve prolapse or vegetation. There is no tricuspid valve stenosis. PULMONIC VALVE The pulmonary valve is normal in structure. There is no pulmonic valvular regurgitation. There is no pulmonic valvular stenosis. GREAT VESSELS The aortic root is normal in size. The ascending aorta is normal in size. The pulmonary artery is normal. The IVC is normal in size and collapses >50% with inspiration. PERICARDIAL EFFUSION There is no pericardial effusion. There is no pleural effusion. <Conclusion> There is mild concentric left ventricular hypertrophy. The estimated ejection fraction is 60-65% Transmitral Doppler flow pattern is Grade I-abnormal relaxation pattern. The left atrium is mildly dilated. The interatrial septum is intact with no evidence for an atrial septal defect on color doppler. There is trivial mitral valve regurgitation noted. There is no tricuspid valve regurgitation noted.
--- NOTE | 2018-07-14 17:52 | CARD ---
APPROVED REPORT Date of service: 07/13/2018 EKG Measurement Heart [id number] [id number] <Conclusion> Normal sinus rhythm Minimal voltage criteria for LVH, may be normal variant Nonspecific T wave abnormality Abnormal ECG
--- NOTE | 2018-07-14 18:15 | CP.PCM.CON ---
History of Present Illness - History of Present Illness History of Present Illness: Neurology consult called by Dr. Theodore. Dictated. Plan; 1. MRI shows acute left basal ganglia stroke, 2. ECho report 3. CTA head complete. 4. Iv fluids normal saline 100 ccs per hour 5. Aspirin and plavix 6. PT ST OT 7. Neuro checks. If patient stable can be discharged. Thank you Dr. Beal Past Patient History - Past Social History Smoking Status: Never Smoked - CARDIAC Hx Hypertension: Yes - ENDOCRINE/METABOLIC Hx Diabetes Mellitus Type 2: Yes - PSYCHIATRIC Hx Substance Use: No - SURGICAL HISTORY Hx Surgeries: No Meds Allergies/Adverse Reactions: Allergies Allergy/AdvReac Type Severity Reaction Status Date / Time No Known Allergies Allergy Verified 07/13/18 15:52 - Medications Medications: Current Medications Aspirin (Ecotrin) 81 mg PO DAILY [facility] Last Admin: 07/14/18 10:38 Dose: 81 mg Atorvastatin Calcium (Lipitor) 20 mg PO DAILY [facility] Last Admin: 07/14/18 10:39 Dose: 20 mg Clopidogrel Bisulfate (Plavix) 75 mg PO DAILY [facility] Last Admin: 07/14/18 10:40 Dose: 75 mg Dextrose (Dextrose 50% Inj) 0 ml IV STAT PRN; Protocol PRN Reason: Hypoglycemia Protocol Dextrose (Glutose 15) 0 gm PO ONCE PRN; Protocol PRN Reason: Hypoglycemia Protocol Enoxaparin Sodium (Lovenox) 40 mg SC DAILY [facility]; Protocol Last Admin: 07/14/18 10:39 Dose: 40 mg Fenofibrate (Tricor) 145 mg PO DAILY [facility] Last Admin: 07/14/18 10:40 Dose: 145 mg Glipizide (Glucotrol Xl) 10 mg PO BID [facility] Last Admin: 07/14/18 17:05 Dose: 10 mg Glucagon (Glucagen Diagnostic Kit) 0 mg IM STAT PRN; Protocol PRN Reason: Hypoglycemia Protocol Sodium Chloride (Sodium Chloride 0.9%) 1,000 mls @ 100 mls/hr IV .Q10H [facility] Last Admin: 07/14/18 17:04 Dose: 100 mls/hr Insulin Detemir (Levemir) 6 units SC HS [facility] Insulin Human Lispro (Humalog) 0 units SC ACCU-CHECK [facility]; Protocol Last Admin: 07/14/18 17:06 Dose: 3 u Metformin HCl (Glucophage) 1,000 mg PO BID [facility] Last Admin: 07/14/18 17:07 Dose: 1,000 mg Pioglitazone HCl (Actos) 15 mg PO DAILY [facility] Last Admin: 07/14/18 10:36 Dose: 15 mg Sitagliptin Phosphate (Januvia) 50 mg PO BID [facility] Last Admin: 07/14/18 17:11 Dose: 50 mg Results - Vital Signs Recent Vital Signs: Last Vital Signs Temp 98.4 F 07/14/18 16:18 Pulse 69 07/14/18 16:18 Resp 17 07/14/18 16:18 BP 142/81 07/14/18 16:18 Pulse Ox 98 07/14/18 16:18 - Labs Result Diagrams: 07/13/18 16:30 07/14/18 06:01 Labs: Laboratory Results - last 24 hr 07/13/18 07/13/18 07/14/18 17:15 19:35 02:56 Sodium Potassium Chloride Carbon Dioxide Anion Gap BUN Creatinine Est GFR ( Amer) Est GFR (Non-Af Amer) POC Glucose (mg/dL) 174 H 140 H Random Glucose Hemoglobin A1c 7.9 H Calcium Blood Type Confirm 07/14/18 07/14/18 07/14/18 06:01 06:01 06:11 Sodium 141 Potassium 4.2 Chloride 111 H Carbon Dioxide 25 Anion Gap 9 L BUN 17 Creatinine 1.2 Est GFR ( Amer) > 60 Est GFR (Non-Af Amer) > 60 POC Glucose (mg/dL) 180 H Random Glucose 182 H Hemoglobin A1c Calcium 9.2 Blood Type Confirm O POSITIVE 07/14/18 07/14/18 12:36 16:12 Sodium Potassium Chloride Carbon Dioxide Anion Gap BUN Creatinine Est GFR ( Amer) Est GFR (Non-Af Amer) POC Glucose (mg/dL) 252 H 238 H Random Glucose Hemoglobin A1c Calcium Blood Type Confirm
[2018-07-14] MEDS ORDERED: Pneumococcal 23-Valent Vaccine IM ONE (18:51)
[2018-07-14] MEDS ORDERED: Sodium Chloride 0.9% 50 ML IV ONE (19:24)
[2018-07-14] MEDS ORDERED: Iodixanol 320 MG/ML 100 ML BOTTLE IV ONE (19:24)
[2018-07-14] MEDS ORDERED: Insulin Detemir 100 Units/ml Inj SC SCH (22:00)
[2018-07-15 00:41] VITALS: O2SAT 98
[2018-07-15] MEDS: Insulin Lispro (humaLOG) 100 Units/ml Inj SC SCH (06:10)
[2018-07-15 06:39] LABS: BLOOD UREA NITROGEN 27 mg/dl (9-20); CALCIUM 9.5 mg/dL (8.4-10.2); GFR NON-AFRICAN AMERICAN 52
[2018-07-15 08:08] VITALS: BP 167/73; PULSE 67; RESP 18; TEMP 98
[2018-07-15] MEDS: Sodium Chloride 0.9% 1,000 ML IV SCH (08:30)
[2018-07-15] MEDS: Enoxaparin 40 mg Syringe SC SCH (09:26)
[2018-07-15] MEDS: GlipiZIDE 10 mg SR Tab PO SCH (09:28)
--- NOTE | 2018-07-15 09:28 | CON ---
DATE: 07/14/2018 Neurology consult called by Dr. Karina Lakhani. HISTORY OF PRESENT ILLNESS: Mr. Leopoldo Gil is a 62-year-old male with past medical history of diabetes type 2, TIA, hypertension, came to the ER yesterday afternoon with right arm weakness that started on Wednesday. The patient was writing for work and started to feel weak in his right arm to the point where he could not move, had complete of the right arm, this lasted for several hours during which he did not come to the emergency room, it completely resolved. The patient presented yesterday with this past complaint, but on exam had . At that time he denied dysphagia, dysarthria, headache, dizziness, confusion, chest pain, shortness of breath, or loss of consciousness. He also had some lower extremity weakness which was worse after walking or standing. Of note, the patient has a history of TIA five years ago. Today, the patient is completely normal with no complaints. There has been a progression of symptoms. MRI of the brain however was done and shows a left basal ganglia infarct. PAST MEDICAL HISTORY: Diabetes type 2, hypertension, TIA. PAST SURGICAL HISTORY: None. FAMILY AND SOCIAL HISTORY: There is no smoking, alcohol, or drug use. MEDICATIONS: At home, the patient is on glimepiride, losartan, metformin, fenofibrate, and Actos. ALLERGIES: NO KNOWN DRUG ALLERGIES. PHYSICAL EXAMINATION: GENERAL: The patient is alert, awake, oriented x3. HEENT: Pupils are equal, round, reactive to light. NEUROLOGIC: Cranial nerves II through XII are normal. Speech is fluent. There is only mild drift on the right arm. Sensory is intact to fine touch, pin, position. Gait is normal. Reflexes are +1 upper and lower limb bilaterally. Toes are downgoing. There is no clonus. LABORATORY DATA: As follows: Hemoglobin 13.6, hematocrit 40.7, sodium 140, potassium 4.5, BUN 21, creatinine 1.3, platelets . Echo was done. CT scan shows a chronic infarct in the left basal ganglia. MRI shows acute infarct in the left basal ganglia. IMPRESSION: This is a 62-year-old male with subacute transient ischemic attack, now completed. He will need CT of the head and neck to evaluate further pathology. PLAN: 1. Neuro checks. 2. Normal saline 100 mL per hour. 3. Echo formal report. 4. CT of the head and neck immediately. 5. PT, SGOT. If echo and CT of the head are normal, the patient will be discharged home with followup with Neurology. Thank you for this interesting consult. Arnav Beal MD MTDD
--- NOTE | 2018-07-15 09:47 | US ---
Date of service: 07/14/2018 PROCEDURE: Duplex ultrasound of the carotid and vertebral arteries. HISTORY: TIA COMPARISON: None available. TECHNIQUE: Grayscale and duplex Doppler evaluation of the cervical carotid and vertebral arteries were performed. The common carotid, carotid bifurcations and cervical ICA and proximal ECA were evaluated. The vertebral arteries were evaluated for gross patency and direction. FINDINGS: RIGHT CAROTID ARTERIES: Common Carotid Artery: Maximal flow velocity of 86.9 cm/s. Carotid Bifurcation: Normal. Internal Carotid Artery:Normal. Maximal flow velocity of 66.6 cm/s. External Carotid Artery (proximal branches): Maximal flow velocity of 122.1 cm/s. ICA/CCA Ratio: 1.1 LEFT CAROTID ARTERIES: Common Carotid Artery: Maximal flow velocity of 93.0 cm/s. Carotid Bifurcation: Normal. Internal Carotid Artery:Normal. Maximal flow velocity of 84.9 cm/s. External Carotid Artery (proximal branches): Maximal flow velocity of 12.0 cm/s. ICA/CCA Ratio: 0.9 VERTEBRAL ARTERIES: Right Vertebral Artery: Patent. Antegrade flow. Left Vertebral Artery: Patent. Antegrade flow. OTHER FINDINGS: Atherosclerotic calcification present. IMPRESSION: Right ICA degree of stenosis: Less than 50% Left ICA degree of stenosis: Less than 50% Reference Internal Carotid Artery (ICA) Peak Systolic Velocity (PSV) for above: 1. Less than 50% stenosis less than 125 cm/s peak systolic velocity 2. 50-69% stenosis 125-230cm/s peak systolic velocity 3. Greater than 70% but less than near occlusion greater than 230 cm/s peak systolic velocity
--- NOTE | 2018-07-15 10:29 | CT ---
Date of service: 07/14/2018 PROCEDURE: CT Angiography of the neck and brain HISTORY: Stroke COMPARISON: Correlation made with CT scan and MRI of the brain both dated 07/21/2018. Correlation also made with carotid Doppler exam dated 07/14/2018. TECHNIQUE: Contiguous axial images of the neck and brain were obtained from the level of the vertex of the skull to the superior mediastinum in the arteriographic phase of enhancement. Coronal and sagittal reformats or also generated. IV contrast dose: Radiation dose: Total exam DLP = 460.69 mGy-cm. This CT exam was performed using one or more of the following dose reduction techniques: Automated exposure control, adjustment of the mA and/or kV according to patient size, and/or use of iterative reconstruction technique. FINDINGS: Aortic arch widely patent with no significant aortic atherosclerotic calcification or mural plaque. The origins of the great vessels are also widely patent. The common carotid arteries and carotid bifurcations are widely patent with no evidence of dissection nor significant stenosis. The distal internal carotid arteries including the petrous cavernous and supraclinoid segments are patent as well. Vertebral arteries are patent throughout and appear relatively symmetric. Basilar artery also patent. The major branches of the [place] are also patent with no evidence of large aneurysm. The distal branches of the anterior middle and posterior cerebral arteries are patent and relatively symmetric within limitations of the study. No evidence of large vascular malformation. OTHER FINDINGS: The small acute left basal ganglia infarct not appreciated on this study. Please refer to MRI of the brain for additional details. Redemonstrated is old right occipito parietal watershed zone infarct. No aortic atherosclerotic calcification or mural plaque present. IMPRESSION: Normal CT Angiography of the neck.. No evidence of occlusion of the intra cerebral vasculature
--- NOTE | 2018-07-15 11:43 | CP.PCM.DIS ---
Provider - Provider Date of Admission: 07/14/18 19:30 Attending physician: Karina Lakhani DO Consults: 07/13/18 16:23 Stroke Team Consult Stat Comment: Consulting Provider: Neurohospitalist Consulting Physician: NEUROHOSP Neurohospitalist for Consult: Boogie Bray Neurohospitalist for Consult: Arnav Beal Reason for Consult: Possible TIA Time Spent in preparation of Discharge (in minutes): 30 Diagnosis - Discharge Diagnosis (1) Chest pain Status: Acute (2) Weakness due to cerebrovascular accident Status: Acute Hospital Course - Lab Results Lab Results: Most Recent Lab Values WBC 6.0 K/uL (4.8-10.8) 07/13/18 16:30 RBC 4.34 Mil/uL (4.40-5.90) L 07/13/18 16:30 Hgb 13.6 g/dL (12.0-18.0) 07/13/18 16:30 Hct 40.7 % (35.0-51.0) 07/13/18 16:30 MCV 93.8 fl (80.0-94.0) 07/13/18 16:30 MCH 31.3 pg (27.0-31.0) H 07/13/18 16:30 MCHC 33.3 g/dL (33.0-37.0) 07/13/18 16:30 RDW 12.3 % (11.5-14.5) 07/13/18 16:30 Plt Count 216 K/uL (130-400) 07/13/18 16:30 MPV 8.9 fl (7.2-11.7) 07/13/18 16:30 Neut % (Auto) 71.3 % (50.0-75.0) 07/13/18 16:30 Lymph % (Auto) 19.5 % (20.0-40.0) L 07/13/18 16:30 Saline % (Auto) 8.2 % (0.0-10.0) 07/13/18 16:30 Eos % (Auto) 0.6 % (0.0-4.0) 07/13/18 16:30 Baso % (Auto) 0.4 % (0.0-2.0) 07/13/18 16:30 Neut # (Auto) 4.3 K/uL (1.8-7.0) 07/13/18 16:30 Lymph # (Auto) 1.2 K/uL (1.0-4.3) 07/13/18 16:30 Saline # (Auto) 0.5 K/uL (0.0-0.8) 07/13/18 16:30 Eos # (Auto) 0.0 K/uL (0.0-0.7) 07/13/18 16:30 Baso # (Auto) 0.0 K/uL (0.0-0.2) 07/13/18 16:30 PT 10.5 Seconds (9.8-13.1) 07/13/18 16:30 INR 0.9 07/13/18 16:30 APTT 32.2 Seconds (25.6-37.1) 07/13/18 16:30 Sodium 141 mmol/l (132-148) 07/15/18 04:30 Potassium 4.3 MMOL/L (3.6-5.0) 07/15/18 04:30 Chloride 108 mmol/L (98-107) H 07/15/18 04:30 Carbon Dioxide 26 mmol/L (22-30) 07/15/18 04:30 Anion Gap 11 (10-20) 07/15/18 04:30 BUN 27 mg/dl (9-20) H 07/15/18 04:30 Creatinine 1.4 mg/dl (0.8-1.5) 07/15/18 04:30 Est GFR ( Amer) > 60 07/15/18 04:30 Est GFR (Non-Af Amer) 52 07/15/18 04:30 POC Glucose (mg/dL) 297 mg/dL (65-110) H 07/15/18 04:57 Random Glucose 292 mg/dL (75-110) H 07/15/18 04:30 Hemoglobin A1c 7.9 % (4.2-6.5) H 07/13/18 17:15 Calcium 9.5 mg/dL (8.4-10.2) 07/15/18 04:30 Total Bilirubin 0.4 mg/dl (0.2-1.3) 07/13/18 16:30 AST 25 U/L (17-59) 07/13/18 16:30 ALT 32 U/L (21-72) 07/13/18 16:30 Alkaline Phosphatase 72 U/L (38-126) 07/13/18 16:30 Troponin I < 0.0120 ng/mL (0.00-0.120) 07/13/18 16:30 Total Protein 7.3 G/DL (6.3-8.2) 07/13/18 16:30 Albumin 4.4 g/dL (3.5-5.0) 07/13/18 16:30 Globulin 2.8 gm/dL (2.2-3.9) 07/13/18 16:30 Albumin/Globulin Ratio 1.6 (1.0-2.1) 07/13/18 16:30 Triglycerides 115 mg/DL (0-149) 07/13/18 16:30 Cholesterol 138 mg/dL (0-199) 07/13/18 16:30 LDL Cholesterol Direct 74 mg/dL (0-129) 07/13/18 16:30 HDL Cholesterol 45 MG/DL (30-70) 07/13/18 16:30 Blood Type O POSITIVE 07/13/18 16:30 Blood Type Confirm O POSITIVE 07/14/18 06:01 Antibody Screen Negative 07/13/18 16:30 BBK History Checked No verified bt 07/13/18 16:30 - Hospital Course Hospital Course: 62 y/o M with a PMHx of DM2, HTN and CVA is admitted for evaluation and management of right upper extremity weakness. --Head CT: No evidence of acute infarct. Old right posterior parietal infarct. Old left basal ganglia lacunar infarct. Neurology consult ordered. MRI of brain shows acute lacunar infarct. Echo and US of b/l carotid WNL. Cleared by neuro, MRI and CTA head WNL. Patient d/c with aspirin, plavix, losartan, and statin. Patient to resume all home medications. Patient advised to follow up with PMD Dr. Adams Discharge Exam - Head Exam Head Exam: ATRAUMATIC, NORMOCEPHALIC - Eye Exam Eye Exam: Normal appearance, PERRL - ENT Exam ENT Exam: Mucous Membranes Moist - Respiratory Exam Respiratory Exam: NORMAL BREATHING PATTERN - Cardiovascular Exam Cardiovascular Exam: REGULAR RHYTHM, +S1, +S2 - Neurological Exam Neurological exam: Alert, Oriented x3 - Psychiatric Exam Psychiatric exam: Normal Affect Discharge Plan - Discharge Medications Prescriptions: Aspirin [Ecotrin] 81 mg PO DAILY #30 tabec Atorvastatin [Lipitor] 20 mg PO DAILY #30 tab Clopidogrel [Plavix] 75 mg PO DAILY #30 tab - Follow Up Plan Condition: FAIR Disposition: HOME/ ROUTINE Instructions: Stroke (DC), Weakness (ED) Referrals: Shaik Adams MD [Family Provider] -
== END 2018-07-15 10:42 | disposition home or self-care (01) | DRG 66 ==
LOC: H.ER 15:35 → H.ERHOLD 18:27 → H.TEL 07-14 11:16 → OBSVTOIN 07-14 19:30
PROVIDERS: ADMIT Student in an Organized Health Care Education/Training Program; ATTEND Student in an Organized Health Care Education/Training Program
PROC: 3E0234Z Introduction of Serum, Toxoid and Vaccine into Muscle, Percutaneous Approach (ICD-10-PCS; principal; 2018-07-14)
DX: I63.81 Other cerebral infarction due to occlusion or stenosis of small artery (principal); E11.65 Type 2 diabetes mellitus with hyperglycemia; G93.89 Other specified disorders of brain; I10 Essential (primary) hypertension; Z82.49 Family history of ischemic heart disease and other diseases of the circulatory system; Z83.3 Family history of diabetes mellitus; Z86.73 Personal history of transient ischemic attack (TIA), and cerebral infarction without residual deficits; Z79.84 Long term (current) use of oral hypoglycemic drugs; Z79.899 Other long term (current) drug therapy; R29.700 NIHSS score 0; Z23 Encounter for immunization